=== PATIENT | female | born 1930 | race Caucasian/White ===

== ENCOUNTER 2017-03-12 05:47 | Emergency (ER) | payer MEDICARE, OTHER ==
[~2017-03-12] VITALS: Ht 170.2 cm; Wt 78.6 kg
[~2017-03-12 05:47] MED LIST: ASPI81TA3; CAND32TA2 PO; ERGO400C; Multivitamin
[2017-03-12 06:05] VITALS: BP 153/75; PULSE 75; RESP 13; O2SAT 97
--- NOTE | 2017-03-12 06:55 | ED.REPORT ---
HPI-Chest Pain 40 and Over Date of Service Mar 12, 2017 ED Provider: Celio Valadez MD History of Present Illness: OCC there is no template for palpitations in this system The pt is a 86 y/o female w/ a hx of HTN, A-fib, and borderline thyroid abnormalities presenting to the ED via EMS due to an abnormal heart rhythm beginning 30 hours ago. She states that her normal HR is roughly 58 BPM but it is running at roughly 78 when she last checked her pulse. She describes the sensation beginning above the sternum and radiating downward, being different than her normal flutters, and being soft and steady. She was unable to sleep at all last night because the sensations are more pronounced while she is lying in bed. She also reports chronic ankle swelling but increasing over the last 6 weeks w/ the R side swelling more. She also describes her feet going from red to dark purple while sitting down occasionally. Denies CP or SOB. The pts last dose of Flecainide was 2300 last night. Nursing Notes Stated Complaint: POUNDING HEART SENSATION Chief Complaint: Dysrhythmia/Cardiac Nursing Notes Reviewed: Yes (MicroQuant not reconciled - Patient on Eliquis , flecainide, losartan, amlodipine...) Allergies: Coded Allergies: Tetanus Antitoxin (Verified Allergy, Intermediate, swelling at injection site, 03/12/17) Uncoded Allergies: Novacaine-headache (Adverse Reaction, Severe, Headache, 01/26/11) Scheduled ([Multivitamin]) 1 DAILY Aspirin-Expunged Drug, Do Not Renew! (Aspirin-Expunged Drug, Do Not Renew!) 81 Mg Tab.chew 81 MG DAILY Candesartan-Expunged Drug, Do Not Renew! (Candesartan-Expunged Drug, Do Not Renew!) 32 Mg Tablet 32 MG PO AM Ergocalciferol-Expunged Drug, Do Not Renew! 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 Physical Exam Initial Vital Signs Vital Signs (First) Date Time Temp Pulse Resp B/P Pulse Ox O2 Delivery O2 Flow Rate FiO2 03/12/17 06:05 36.5 75 13 153/75 97 Room Air Initial VS: Reviewed, Vital signs normal Head / Eyes: Atraumatic, Normocephalic, PERRL ENT: Mucous membranes moist, Conjunctiva normal, No scleral icterus Neck: Supple, Non-tender, Full range of motion Extremities: Vascular intact, Neuro intact, No swelling, No tenderness Skin: Warm, Dry, No cyanosis Neurologic: Alert, Oriented, Nonfocal Psychiatric: Mood/affect normal, Behavior normal, Normal thought content General/Constitutional: Awake, Alert Respiratory / Chest: Atraumatic, Breath sounds NL, Breath sounds = bilat Cardiovascular: Heart rate NL, Regular rhythm, Heart sounds NL Abdomen: Atraumatic, Soft, Non-tender Interpretation & Diagnostics Lab Results Interpretation Result Diagram: 03/12/17 0705 03/12/17 0705 Test 03/12/17 07:05 White Blood Count 6.8th/mm3 (3.8-10.1) Red Blood Count 4.28mil/mm3 (3.90-5.20) Hemoglobin 13.6g/dL (12.0-15.6) Hematocrit 41.2% (35.0-46.0) Mean Corpuscular Volume 96.3fL (81-100) Mean Corpuscular Hemoglobin 31.8pg (27.0-35.0) Mean Corpuscular Hemoglobin Concent 33.0% (32.0-37.0) Red Cell Distribution Width 12.8% (12.3-15.4) Platelet Count 285bil/L (150-400) Neutrophils (%) (Auto) 58.5% (40-74) Lymphocytes (%) (Auto) 28.6% (14-46) Monocytes (%) (Auto) 8.7% (4-12) Eosinophils (%) (Auto) 3.5% (0-5) Basophils (%) (Auto) 0.6% (0-3) Sodium Level 141mEq/L (134-144) Potassium Level 4.2mEq/L (3.5-5.2) Chloride Level 103mEq/L (97-108) Carbon Dioxide Level 22mmol/L (18-29) Blood Urea Nitrogen 17mg/dL (8-27) Creatinine 0.69mg/dL (0.57-1.00) Estimat Glomerular Filtration Rate 116mL/min (>59) Glucose Level 101mg/dL (60-99) Calcium Level 8.8mg/dL (8.5-10.1) Magnesium Level 2.1mg/dL (1.6-2.6) Total Bilirubin 0.3mg/dL (0.0-1.2) Aspartate Amino Transf (AST/SGOT) 19U/L (0-50) Alanine Aminotransferase (ALT/SGPT) 12U/L (0-32) Alkaline Phosphatase 82U/L (25-165) Troponin T 0.010ug/L (0.0-0.011) Total Protein 7.2g/dL (6.4-8.4) Albumin 3.9g/dL (3.4-5.0) Thyroid Stimulating Hormone (TSH) 4.000uIU/mL (0.450-4.500) Lab Results Interpretation: CBC normal CMP normal TSH normal Troponin negative ECG Interpretation ECG Interpretation: EKG demonstrates a normal sinus rhythm with first-degree heart block at rate of 71, with intermittent ventricular bigeminy. There is NEM-mxralz-q-bpmmcoeqbtd-fndvtseiqstbgeew-maxjxvqxbc-xmsqk-bzre-de-unchange u-nnwpmoiz-xrdm-09/17/2013 although the ventricular bigeminy is new Time: 06:43 Interpreted by: ED physician (n) Re-Eval/Medical Decision Med Decision/Clinical Course This is an 86-year-old female with history of paroxysmal atrial fibrillation on flecainide and Eliquis who presents complaining of a sense of palpitations over the past 3 days, she states these palpitations are different than what she has had with her atrial fibrillation-she has not had her fluttering, or the classical symptoms. It is bothering her enough that after 3 days she said it come get checked out. She denies chest pain shortness breath. She denies diaphoresis near syncope. On exam she is having frequent PVCs and intermittent bigeminy, but otherwise appears well. Blood work is normal including normal potassium magnesium and TSH. I discussed the case with industrial maintenance instructor on-call, who strongly recommends the patient beyond a beta blockade given her other medicines. The patient does not name being on a beta tam, does not listen on any of her medications, and even containing a current med list from the cardiology notes neck status is not listed beta tam. So discussion the patient the patient be started on 25 mg of metoprolol twice a day, given the patient was just recently had amlodipine added for hypertension month ago, is now worried about being on too much blood pressure-the metoprolol will replace the amlodipine until the patient can follow up with her regular industrial maintenance instructor. Reassurance is provided, patient's discharge in good condition. Routine and return precautions reviewed. Source of Hx: Old records Time of Eval: 08:45 Re-Evaluation/Progress Note: Pt rechecked. Informed pt of plan for treatment. Pt understands and agrees with plan for treatment. F/U instructions and RTER warnings given. All questions addressed. Consultation : Referral / Consult Name: Denise Betancourt MD Consulted With: Cardiology Call Returned at: 08:23 Note: Discussed pt's case. Differential Diagnosis: Positive: Dysrhythmia (PVC's), Negative: Acute coronary syndrome, Acute myocardial infarct, Aortic stenosis , Gun shot wound chest, Pericarditis, Pneumonia, Pneumothorax, Pulmonary embolism Counseled Regarding: Diagnosis, Lab results, Need for follow-up, When/why to return to ED Discharge & Departure Primary Impression: PVCs (premature ventricular contractions) Additional Impression: Anticoagulated by anticoagulation treatment Disposition: Home Discharge Condition All VS Reviewed: Yes Condition: Stable Additional Instructions: 1. Your blood tests and Xray were normal. 2. Your symptoms are from a condition called "premature ventricular contractions " or "PVC's", which are uncomfortable but not dangerous. 3. I have reviewed your case with Dr. Rodriguez's partner, and their strong recommendation is that you be on a beta-tam - metoprolol 25mg twice a day ( this is a low dose) that often works well with your flecainide to help prevent these from happening. 4. You could take this instead of your new amlodipine until you follow up with Dr. Rodriguez. 5. Activities as tolerated. 6. Return if new or worsening symptoms. Referrals: Christel Moreno MD (PCP) Matthias Rodriguez MD Scribe Attestation Portions of this note were transcribed by Ace Penaloza. I, Dr. Valadez personally performed the history, physical exam and medical decision-making; I reviewed and confirmed the accuracy of the information in the transcribed note. copies to: Matthias Rodriguez MD; Christel Moreno MD, Matthew F MD Mar 12, 2017 06:55 Ace Penaloza Mar 12, 2017 07:17
[2017-03-12 07:00] VITALS: BP 164/94; PULSE 72; RESP 14; O2SAT 96
[2017-03-12 07:17] LABS: BASOPHILS % (AUTO) 0.6 % (0-3); EOSINOPHILS % (AUTO) 3.5 % (0-5); MONOCYTES % (AUTO) 8.7 % (4-12); Mean Corpuscular Hemoglobin 31.8 pg (27.0-35.0); Mean Corpuscular Volume 96.3 fL (81-100); NEUTROPHILS % (AUTO) 58.5 % (40-74); Platelet Count 285 bil/L (150-400)
[2017-03-12 07:30] VITALS: PULSE 72; RESP 17; O2SAT 95
[2017-03-12 07:35] LABS: TROPONIN T 0.01 ug/L (0.0-0.011)
[2017-03-12 07:46] LABS: Magnesium 2.1 mg/dL (1.6-2.6)
[2017-03-12 08:00] VITALS: PULSE 67; RESP 15; O2SAT 94
[2017-03-12 08:30] VITALS: PULSE 66; RESP 17; O2SAT 92
[2017-03-12] MEDS ORDERED: METO25TA6 PO (08:43)
[2017-03-12 09:14] VITALS: BP 159/59
--- NOTE | 2017-03-12 14:44 | DRSVH ---
PROCEDURE: X-RAY CHEST ONE VIEW, PORTABLE ([id number]) INDICATIONS: BECKI Yusuf TECHNIQUE: One view of the chest was acquired. COMPARISON: [facility], CHEST 2 VIEW, 01/18/2012, 10:55. [facility], CHEST 2 VIEW, 03/16/2011, 10:41. [facility], , CHEST 2 VIEW, 07/17/2016, 11:28. [facility], CHEST 1 VIEW, 07/14/2016, 11:53. [facility], , CHEST 2VW, 09/17/2013, 6:40. FINDINGS: Surgical changes and devices: None. Lungs and pleura: No pleural effusions or pneumothorax. Lungs are clear, aside from small right upp er lobe granuloma which is unchanged over time. Mediastinum: Mediastinal contours appear normal. Heart size is normal. Bones and chest wall: No suspicious bony lesions. Overlying soft tissues appear unremarkable. IMPRESSION: No acute cardiopulmonary disease. Dictated by: Eliezer Mccormack [facility] Interpreted: Pollo Rao MD on 03/12/2017 at 9:46 Approved by: Pollo Rao M.D. on 03/12/2017 at 14:42
== END 2017-03-12 09:16 | disposition home or self-care (01) ==
LOC: EDBD 05:47 → EDUNIT# 05:47 → SED 05:47
DX: I49.3 Ventricular premature depolarization (principal); I10 Essential (primary) hypertension; I48.91 Unspecified atrial fibrillation; Z90.89 Acquired absence of other organs; Z86.39 Personal history of other endocrine, nutritional and metabolic disease; Z79.82 Long term (current) use of aspirin; Z88.7 Allergy status to serum and vaccine; Z88.8 Allergy status to other drugs, medicaments and biological substances; Z79.01 Long term (current) use of anticoagulants

== ENCOUNTER 2017-04-20 12:55 | Emergency (ER) | payer MEDICARE, OTHER ==
[~2017-04-20] VITALS: Ht 167.6 cm; Wt 85.0 kg
[~2017-04-20 12:55] MED LIST changes: +METO25TA6 PO
--- NOTE | 2017-04-20 13:07 | ED.REPORT ---
HPI-Syncope Date of Service Apr 20, 2017 ED Provider: Wilder Hernandez MD Felicita is a 68-year-old female with a history of A. fib presents to the ED for a near syncopal episode. Episode occurred while she was sitting at a restaurant. She denies loss of consciousness. She denied changing in position making things worse. Niaspan E chest pain, palpitations, or shortness of breath. She notes that she has had episodes like this in the past after eating a hearty lunch. Nursing Notes Stated Complaint: NEAR SYNCOPE Chief Complaint: General Complaint Allergies: Coded Allergies: Tetanus Antitoxin (Verified Allergy, Intermediate, swelling at injection site, 03/12/17) Uncoded Allergies: Novacaine-headache (Adverse Reaction, Severe, Headache, 01/26/11) Scheduled ([Multivitamin]) 1 DAILY Aspirin-Expunged Drug, Do Not Renew! (Aspirin-Expunged Drug, Do Not Renew!) 81 Mg Tab.chew 81 MG DAILY Candesartan-Expunged Drug, Do Not Renew! (Candesartan-Expunged Drug, Do Not Renew!) 32 Mg Tablet 32 MG PO AM Ergocalciferol-Expunged Drug, Do Not Renew! (Vitamin D-Expunged Drug, Do Not Renew!) 400 Unit Capsule DAILY Metoprolol Tartrate (Metoprolol Tartrate) 25 Mg Tablet 25 MG PO BID General Time Seen by Provider: 13:30 Chief Complaint [place] faint Patient felt faint and had to put her head down on the table. 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 Past Surgical History Left hip Appendectomy Hysterectomy Tonsillectomy Status post Alvarez's neuroma Negative cardiac stress test January 2011 Smoking History Never Smoker Social History Alcohol Use: Denies alcohol use Other Social History: Good social support Ambulatory Status Independent Review of Systems Basic Review of Systems : No dysuria, No frequency Hematologic: No bleeding, No bruising Endocrine: No cold intolerance, No heat intolerance, No weight gain, No weight loss Allergy / Immune: No allergy Constitutional: Denies: Chills, Fever Respiratory: Denies: Dyspnea on exertion Cardiovascular: Denies: Chest pain GI: Denies: Abdominal pain, Nausea, Vomiting Complete sys rev & neg: except as marked. Physical Exam Initial Vital Signs Vital Signs (First) Date Time Temp Pulse Resp B/P Pulse Ox O2 Delivery O2 Flow Rate FiO2 04/20/17 13:31 36.5 54 14 138/58 99 Room Air Head / Eyes: Atraumatic, Normocephalic, PERRL ENT: Mucous membranes moist, Conjunctiva normal, No scleral icterus Neck: Supple, Non-tender, Full range of motion Abdomen / GI: Soft, Non-tender, No guarding, No rebound, No distention Back: No CVA tenderness Lymphatic: No lymphadenopathy Upper Extremities: Vascular intact, Neuro intact, No swelling, No tenderness Skin: Warm, Dry, No cyanosis Psychiatric: Mood/affect normal, Behavior normal, Normal thought content General/Constitutional: Awake, Alert, Well appearing Respiratory / Chest: Breath sounds NL, Breath sounds = bilat, No respiratory distress, No rales, No rhonchi, No wheezing Cardiovascular: Heart rate NL, Regular rhythm, Heart sounds NL, No murmurs, Cap refill not delayed, Peripheral circulation NL Neurologic: Oriented X3, Speech NL, No motor deficits, No sensory deficits, CN II - XII intact, Reflexes equal bilat, Cerebellar NL Interpretation & Diagnostics Lab Results Interpretation Result Diagram: 04/20/17 1300 04/20/17 1300 Test 04/20/17 13:00 White Blood Count 9.0th/mm3 (3.8-10.1) Red Blood Count 4.14mil/mm3 (3.90-5.20) Hemoglobin 13.4g/dL (12.0-15.6) Hematocrit 40.1% (35.0-46.0) Mean Corpuscular Volume 96.9fL (81-100) Mean Corpuscular Hemoglobin 32.4pg (27.0-35.0) Mean Corpuscular Hemoglobin Concent 33.4% (32.0-37.0) Red Cell Distribution Width 12.6% (12.3-15.4) Platelet Count 341bil/L (150-400) Neutrophils (%) (Auto) 62.8% (40-74) Lymphocytes (%) (Auto) 27.0% (14-46) Monocytes (%) (Auto) 7.5% (4-12) Eosinophils (%) (Auto) 1.8% (0-5) Basophils (%) (Auto) 0.7% (0-3) Sodium Level 138mEq/L (134-144) Potassium Level 4.0mEq/L (3.5-5.2) Chloride Level 99mEq/L (97-108) Carbon Dioxide Level 24mmol/L (18-29) Blood Urea Nitrogen 14mg/dL (8-27) Creatinine 0.75mg/dL (0.57-1.00) Estimat Glomerular Filtration Rate 105mL/min (>59) Glucose Level 142mg/dL (60-99) Calcium Level 8.8mg/dL (8.5-10.1) Magnesium Level 2.0mg/dL (1.6-2.6) Total Bilirubin 0.5mg/dL (0.0-1.2) Aspartate Amino Transf (AST/SGOT) 19U/L (0-50) Alanine Aminotransferase (ALT/SGPT) 11U/L (0-32) Alkaline Phosphatase 85U/L (25-165) Troponin T 0.010ug/L (0.0-0.011) Total Protein 7.1g/dL (6.4-8.4) Albumin 3.8g/dL (3.4-5.0) ECG Interpretation ECG Interpretation: Sinus rhythm at a rate of 53 bpm. Prolonged NM interval - NM 247 LVH with secondary repolarization abnormality Time: 13:12 Interpreted by: ED physician Re-Eval/Medical Decision Med Decision/Clinical Course Mrs. Castro is a 86-year-old female presents for near syncopal episode. Is rather frustrated at this point because she feels like she did not need to come to the ED. Currently she is asymptomatic no signs of chest pain, palpitations, or shortness of breath. Neurologic exam showed no deficits. EKG showed that she is in normal sinus rhythm, with a type I heart block. Orthostatics were also performed which were normal. Discharge & Departure Impression: Primary Impression: Near syncope Disposition: Home Discharge Condition All VS Reviewed: Yes Condition: Stable Patient Instructions: Near Syncope (ED) Additional Instructions: We did a thorough workup of your near syncopal episode today and ruled out all life threatening causes. Labs show that you do not have any signs of infection. Your heart is beating at a regular rate and rhythm. With no symptoms of chest pain, palpitations, or shortness of breath the likelihood that an arrhythmia is unlikely that still possible. For further workup/Holter monitor please all over up with your primary care provider. Referrals: Christel Moreno MD (PCP) EDSupervising Provider for APC: Wilder Hernandez MD Attending Statement I discussed case with resident Dr. Bradley and I evaluated the patient independently and agree with plan as above. In brief, 86-year-old female presenting with near syncopal event earlier today. She denies loss of consciousness. She denies any associated symptoms. Denies any cardiac prodrome. Her EKG is unremarkable here. No arrhythmias observed on monitoring for several hours. Her labs are unremarkable. Troponins are negative. Her exam is benign no focal neuro deficits. Unclear etiology gave patient option of hospitalization patient declined she requests to go home and follow-up with her primary doctor with return precautions. She may benefit from an outpatient Holter monitor. Wilder Hernandez MD Apr 20, 2017 13:06 Leslye Bradley DO Apr 20, 2017 15:06
[2017-04-20 13:24] LABS: BASOPHILS % (AUTO) 0.7 % (0-3); EOSINOPHILS % (AUTO) 1.8 % (0-5); MONOCYTES % (AUTO) 7.5 % (4-12); Mean Corpuscular Hemoglobin 32.4 pg (27.0-35.0); Mean Corpuscular Volume 96.9 fL (81-100); NEUTROPHILS % (AUTO) 62.8 % (40-74); Platelet Count 341 bil/L (150-400)
[2017-04-20 13:31] VITALS: BP 138/58; PULSE 54; RESP 14; O2SAT 99
[2017-04-20 13:43] LABS: TROPONIN T 0.01 ug/L (0.0-0.011)
--- NOTE | 2017-04-20 14:34 | DRSVH ---
PROCEDURE: X-RAY CHEST ONE VIEW, PORTABLE ([id number]) INDICATIONS: near syncope TECHNIQUE: One view of the chest was acquired. COMPARISON: [facility], [place], CHEST 1 VIEW, 08/20/2016, 13:09. [facility], [place], XR [address] 1VW (PORTABLE), 03/12/2017, 7:31. FINDINGS: Surgical changes and devices: None. Lungs and pleura: No pleural effusions or pneumothorax. Lungs are clear. Mediastinum: Mediastinal contours appear normal. Heart size is normal. Bones and chest wall: No suspicious bony lesions. Overlying soft tissues appear unremarkable. IMPRESSION: No acute cardiopulmonary disease. Dictated by: Whitley Newton M.D. on 04/20/2017 at 14:32 Approved by: Whitley Newton M.D. on 04/20/2017 at 14:32
[2017-04-20 15:37] VITALS: BP 114/62; PULSE 56
== END 2017-04-20 15:38 | disposition home or self-care (01) ==
LOC: SED 12:55
DX: R55 Syncope and collapse (principal); I10 Essential (primary) hypertension; I48.0 Paroxysmal atrial fibrillation; Z90.710 Acquired absence of both cervix and uterus; Z88.7 Allergy status to serum and vaccine